=== PATIENT | female | born 1930 | race Hispanic/Latino ===

== ENCOUNTER 2017-03-27 10:26 | Outpatient (CLI) | payer MEDICARE ==
--- NOTE | 2017-03-27 15:45 | Magnetic Resonance Report ---
MRI of the brain with and without contrast. History: Melanoma/evaluate for metastatic disease. Procedure: A routine brain protocol with and without contrast was performed and compared to the noncontrast study performed on July 16, 2014. Findings: A Small chronic lacune is again noted in the left sanjana. The ventricles are unremarkable for age. Age-appropriate senescent changes are noted. There scattered areas of hyperintense T2 and flair signal in the periventricular white matter. A small chronic lacunae seen in the right basal ganglia, unchanged. There is no restricted diffusion. 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 After contrast administration, there are no areas of abnormal parenchymal enhancement. Significant motion artifact is seen on the postcontrast images however. Tiny metastatic foci can be missed on this study. No enhancing bony lesions are seen. The visualized extracranial structures are unremarkable. Impression: 1. No evidence of metastatic disease is seen although there are technical limitations on the postcontrast study. 2. Stable senescent and chronic ischemic changes.
== END 2017-03-27 10:27 | disposition home or self-care (01) ==
LOC: MRI 10:26
PROVIDERS: ATTEND Internal Medicine Hematology
DX: C43.30 Malignant melanoma of unspecified part of face (principal)
CPT/HCPCS: 36415; 70553; 78815; 82565; 82962; 84520; A9552; A9577

== ENCOUNTER 2017-10-30 09:51 | Outpatient (CLI) | payer MEDICARE ==
--- NOTE | 2017-10-31 16:15 | PET Report ---
WHOLE BODY PET/CT:08/24/15 CLINICAL: Melanoma restaging. Head and neck cancer. RADIOPHARMACEUTICAL: mCi F18-FDG. COMPARISON: 03/27/17 PET/CT TECHNIQUE- Following intravenous injection of F-18 FDG and an approximately 60 minute uptake period, CT and PET images from the top of the cranium through the feet were acquired with the patient in the fasted state. No contrast was administered. The CT protocol used for this PET CT study is designed for attenuation correction and anatomic localization of PET abnormalities. This studio assistant CT is not desired to produce and cannot replace, [id number] diagnostic CT scans with specific imaging protocols for different body parts and indications. Plasma glucose at the time of this test: 115g/dl. The standardized uptake values (SUV) are normalized to patient body weight and indicate the highest activity concentration (SUV max) in a given disease site. FINDINGS: Brain--Physiologic FDG uptake in the visualized regions of the brain. Neck--A new FDG avid 8 x 4 mm upper posterior cervical lymph node with SUV 3.4. No other abnormal lymph nodes in the neck. Chest--Physiologic FDG uptake in mediastinal blood pool and myocardium. Lungs--No abnormal uptake. No pulmonary nodule or mass. Pleura/pericardium--No abnormal uptake. Thoracic nodes--No abnormal uptake. Hepatobiliary--No abnormal uptake. Liver background SUV mean, as a reference for comparing FDG studies, is 3.6 compared to 4.5 on the last exam. A stable hypodense right hepatic line FDG avid mass measures 3.5 x 3.3 cm. No other liver lesions. Spleen--No abnormal uptake. Pancreas--No abnormal uptake. Adrenal Glands--No abnormal uptake. Kidneys/Ureters/Bladder--No abnormal uptake. Abdominopelvic Nodes--No abnormal uptake. Bowel/Peritoneum/Mesentery--No abnormal uptake. Pelvic organs--No abnormal uptake. Bones/Soft Tissues--No abnormal uptake. Extremities--No abnormal uptake. No skin lesions identified. IMPRESSION: 1. A new FDG avid 8mm left upper posterior cervical lymph node this is for tumor. 2. Stable non-FDG avid right hepatic mass. 3. No other significant findings.
== END 2017-10-30 09:52 | disposition home or self-care (01) ==
LOC: PET 09:51
PROVIDERS: ATTEND Internal Medicine Hematology
DX: C43.4 Malignant melanoma of scalp and neck (principal); K76.89 Other specified diseases of liver
CPT/HCPCS: 78815; 82962; A9552

== ENCOUNTER 2018-02-05 09:40 | Outpatient (CLI) | payer MEDICARE ==
--- NOTE | 2018-02-06 10:27 | PET Report ---
WHOLE BODY PET/CT:02/05/18 CLINICAL: Melanoma restaging. RADIOPHARMACEUTICAL: 14.59mCi F18-FDG. COMPARISON: 10/30/17 PET/CT TECHNIQUE- Following intravenous injection of F-18 FDG and an approximately 60 minute uptake period, CT and PET images from the top of the cranium through the feet were acquired with the patient in the fasted state. No contrast was administered. The CT protocol used for this PET CT study is designed for attenuation correction and anatomic localization of PET abnormalities. This senior analysis specialist CT is not desired to produce and cannot replace, [id number] diagnostic CT scans with specific imaging protocols for different body parts and indications. Plasma glucose at the time of this test: 122g/dl. The standardized uptake values (SUV) are normalized to patient body weight and indicate the highest activity concentration (SUV max) in a given disease site. FINDINGS: Brain--Physiologic FDG uptake in the visualized regions of the brain. Neck--The previously described FDG avid left upper posterior cervical lymph node measures 1.1 x 0.7 cm with SUV 3.9 compared to 0.8 x 0.4 cm in SUV 3.4 on the last exam. No new lymphadenopathy. Chest--Physiologic FDG uptake in mediastinal blood pool and myocardium. Lungs--No abnormal uptake. No pulmonary nodule or mass. Pleura/pericardium--No abnormal uptake. Thoracic nodes--No abnormal uptake. Hepatobiliary--No abnormal uptake. Liver background SUV mean, as a reference for comparing FDG studies, is 3.5 compared to 3.6 on the last exam. The previously described hypodense right hepatic mass measures 3.8 x 3.1 cm with SUV 3.2 compared to 3.5 x 3.3 cm and SUV 2.5. No new hepatic lesions. Spleen--No abnormal uptake. Pancreas--No abnormal uptake. Adrenal Glands--No abnormal uptake. Kidneys/Ureters/Bladder--No abnormal uptake. Abdominopelvic Nodes--No abnormal uptake and no lymphadenopathy. Bowel/Peritoneum/Mesentery--No abnormal uptake. Pelvic organs--No abnormal uptake. Bones/Soft Tissues--No abnormal uptake. Extremities--No abnormal uptake in the upper extremities. However, the lateral aspect of both arms is not included on the exam. Probably benign focus of FDG uptake in the left posterolateral deep soft tissues of the thigh with SUV 1.6. No lymph node or mass associated with the uptake. IMPRESSION: 1. A slightly larger single FDG avid left cervical lymph node with slightly greater FDG uptake. 2. A slightly larger 3.8 cm right hepatic mass with mild FDG uptake. 3. No new mass or lymphadenopathy. 4. A probably benign new focus of FDG uptake in the deep soft tissues of the left posterolateral thigh.
== END 2018-02-05 09:41 | disposition home or self-care (01) ==
LOC: PET 09:40
PROVIDERS: ATTEND Internal Medicine Hematology
DX: C43.4 Malignant melanoma of scalp and neck (principal); K76.89 Other specified diseases of liver
CPT/HCPCS: 78816; 82962; A9552

== ENCOUNTER 2018-03-11 08:02 | Day surgery (SDC) | payer MEDICARE ==
[2018-03-11 11:56] VITALS: BP 170/61
--- NOTE | 2018-03-11 12:27 | Short Stay Summary ---
Short Stay Documentation Date of service: 03/11/18 - History Principal diagnosis: melanoma H&P: obtained from office - Allergies and Medications Current Medications: Allergies NSAIDS (Non-Steroidal Anti-Inflamma Allergy (Unverified 02/05/18 09:41) Unknown Home Medications Medication Instructions Recorded Confirmed Last Taken Type Amlodipine Bes/Olmesartan Med 1 each PO DAILY 03/11/18 03/11/18 03/10/18 History [Cornelio 5-20 mg Tablet] Bimatoprost 0.01%(Nf) [Lumigan 2.5 ml OU PMHY 03/11/18 03/11/18 03/10/18 History 0.01%(Nf)] Escitalopram Oxalate [Lexapro] 5 mg PO QPM 03/11/18 03/11/18 03/10/18 History Ibandronate Sodium [Boniva] 150 mg PO DAILY 03/11/18 03/11/18 03/10/18 History Levothyroxine [Synthroid] 50 mcg PO QAM 03/11/18 03/11/18 03/10/18 History Meclizine [Antivert] 25 mg PO QHS 03/11/18 03/11/18 03/10/18 History Pantoprazole [Protonix] 40 mg PO QAM 03/11/18 03/11/18 03/10/18 History Potassium Chloride [K-Dur] 20 meq PO BID 03/11/18 03/11/18 03/10/18 History - Physical exam General appearance: no acute distress HEENT: Atraumatic, PERRLA, EOMI - Brief post op/procedure progress note Date of procedure: 03/11/18 Pre-op diagnosis: melanoma Post-op diagnosis: same Procedure: US FNA left cervical lymph node Anesthesia: local Findings: 1cm left cervical LN positive on recent PET Surgeon: KAISER MCKEON Estimated blood loss: none Pathology: list (FNA x 4) Specimen disposition: to lab Condition: stable - Disposition Condition at discharge: Good Disposition: [id number] TO HOME OR SELFCARE Short Stay Discharge Plan Follow up with: ALYSSIA LOERA MD [Primary Care Provider] - 7 Days
--- NOTE | 2018-03-11 12:30 | Ultrasound Report ---
ULTRASOUND BIOPSY LYMPH NODE History: Malignant melanoma of scalp and neck. Description of procedure: Informed consent was obtained. Sterile technique was utilized. 1% lidocaine for skin anesthesia. Using ultrasound guidance, 4 FNAs were obtained from an 11 x 6 x 10 mm lymph node in the left side of the neck which was positive on recent PET imaging. The samples were deemed adequate by the pathologist on site. No complications. Impression: Successful ultrasound-guided fine needle aspiration of a left cervical lymph node as described.
== END 2018-03-11 12:30 | disposition home or self-care (01) ==
LOC: CATHLABREC 08:02 → EDSTATUS 09:00 → CATHLABREC 12:30
PROVIDERS: ATTEND Internal Medicine Hematology
DX: C77.0 Secondary and unspecified malignant neoplasm of lymph nodes of head, face and neck (principal); C43.4 Malignant melanoma of scalp and neck
CPT/HCPCS: 10022; 38505; 76942; 88172; 88173; 88184; 88185; 88305; 88333; 88341; 88342

== ENCOUNTER → 2018-06-25 | Outpatient (CLI) | payer MEDICARE ==
--- NOTE | 2018-06-26 08:19 | Magnetic Resonance Report ---
MRI BRAIN WITHOUT CONTRAST: 06/25/18 13:09:00 CLINICAL: Malignant melanoma of scalp and neck. TECHNIQUE: Axial diffusion, T1, T2, gradient echo T2*, coronal and axial FLAIR and sagittal T1 sequences without contrast on a 1.5 Sabi magnet. Contrast was not given because of a low GFR (35). FINDINGS: Age-appropriate ventricles and sulci. No restricted diffusion. Stable bilateral periventricular white matter hyperintensities on FLAIR and T2. No mass or mass effect. No hemorrhage, edema or extra-axial collection. Normal pituitary and optic chiasm. 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 A stable left parietal white matter lacunar infarct. The cerebellum is normal. Intact vascular flow voids. Normal sinuses. The orbits, and soft tissues are normal. Normal calvarium and skull base. IMPRESSION: Negative study with no evidence of metastatic disease.
== END | disposition home or self-care (01) ==
LOC: MRI 13:09
PROVIDERS: ATTEND Internal Medicine Hematology
DX: C43.4 Malignant melanoma of scalp and neck (principal); I10 Essential (primary) hypertension; M81.0 Age-related osteoporosis without current pathological fracture; E05.90 Thyrotoxicosis, unspecified without thyrotoxic crisis or storm; Z88.8 Allergy status to other drugs, medicaments and biological substances
CPT/HCPCS: 36415; 70551; 78816; 82565; 82962; 84520; A9552